=== PATIENT | female | born 1995 | race Caucasian/White ===

== ENCOUNTER 2024-07-11 15:00 | Outpatient (CLI) | payer BC, SELFPAY ==
--- NOTE | 2024-07-11 15:00 | CRLHL7_ITS ---
For Patients: As a result of the 21st Century Cures Act, medical imaging exams and procedure reports are released immediately into your electronic medical record. You may view this report before your referring provider. If you have questions, please contact your health care provider. OB ULTRASOUND SURVEY LMP: 02/19/2024. ROE by LMP: 11/25/2024. GA: 20 w, 3 d. INDICATION: Supervision of normal . TECHNIQUE: Real time grayscale imaging of the fetus was performed. Evaluate anatomy. Transabdominal. position: Breech. Cervix: Visualized. Technique: Transabdominal. Length of closed cervix: 4.3 cm. Placenta/cord: Anterior. Technique: Transabdominal. Placenta tip to internal OS: 6.6 cm. Umbilical Cord: 3-vessel cord. Placenta insertion: Central. Amniotic Fluid: 5.0 cm SDP (greater than/equal to: 2- less than 8 cm). SURVEY: Observed Structures. Calvarium/Spine: Cerebellum: 2.3 cm, 22 w 4 d. Cisterna Magna: 4.1 mm. Nuchal Fold: 5.1 mm. Lateral Ventricle: 6.4 mm. CSP: Yes. Midline Falx: Yes. Choroid Plexus: Yes. Spine: Yes. Abdomen: Stomach: Yes. Abd Cord Insertion: Yes. Urinary Bladder: Yes. Kidneys: Yes. Diaphragm: Yes. Face: Nose/lips: Yes. Orbital view: Yes. Profile: Yes. Limbs: Upper Extremities: Yes. Lower Extremities: Yes. Hands: Yes. Feet: Yes. Vascular: 4-Chamber Heart: Yes. LVOT: Yes. RVOT: Yes. 3VV: Yes. 3VTV: Yes. BPD: 4.9 cm. 20 w, 6 d, 69 percent. HC: 18.8 cm. 21 w, 1 d, 73 percent. AC: 17.1 cm. 22 w, 0 d, 89 percent. FL: 3.4 cm. 20 w, 4 d, 48 percent. FL/AC ratio: 19.79 percent. HC/AC ratio: 1.10. heart rate: 147 bpm. age by this US: 21 w, 3 d. ROE by this US: 11/18/2024. EFW: 417.68 g. Weight: 0 lbs, 15 oz. Percentile by ROE: 90 percent. IMPRESSION: 1. Sonographic gestational age 21 weeks 3 days and sonographic due date 11/18/2024. Sonographic age 1 week ahead of the clinical age. 2. Estimated weight 90th percentile. Abdominal circumference 89th percentile. 3. Normal anatomic survey. Onur Cedillo M.D. Diagnostic Radiologist [email or web address]/Dictated by: Onur Cedillo MD @ 07/12/2024 9:23:00 AM (Electronically Signed)
== END 2024-07-11 15:01 | disposition home or self-care (01) ==
LOC: US 15:01
PROVIDERS: PCP Family Medicine; Visit Provider Advanced Practice Midwife
DX: Z34.92 Encounter for supervision of normal pregnancy, unspecified, second trimester (principal); Z3A.20 20 weeks gestation of pregnancy
CPT/HCPCS: 76805

== ENCOUNTER 2024-09-06 08:30 | Outpatient (CLI) | payer BC, SELFPAY | END 2024-09-06 08:31 | disposition home or self-care (01) | LOC: NFLDREF 09-08 07:54 | PROVIDERS: PCP Family Medicine; Referring Provider Family Medicine; Visit Provider Advanced Practice Midwife | DX: Z34.83 Encounter for supervision of other normal pregnancy, third trimester (principal) | CPT/HCPCS: 86592 ==

== ENCOUNTER 2024-10-18 13:57 | Outpatient (CLI) | payer BC, SELFPAY ==
--- NOTE | 2024-10-24 14:03 | ONC.NURNOTE ---
Dx: Iron Deficiency Anemia in
== END 2024-10-18 13:58 | disposition home or self-care (01) ==
PROVIDERS: PCP Family Medicine; Referring Provider Family Medicine; Visit Provider Advanced Practice Midwife
DX: Z34.93 Encounter for supervision of normal pregnancy, unspecified, third trimester (principal)
CPT/HCPCS: 82728

== ENCOUNTER 2024-11-03 09:08 | Outpatient (CLI) | payer BC, SELFPAY ==
[2024-11-04 13:41] LABS: Strep B DNA Probe Negative (Negative)
[2024-11-04 13:58] LABS: Strep B Susceptibility Needed? No
== END 2024-11-03 09:09 | disposition home or self-care (01) ==
LOC: NFLDREF 09:08
PROVIDERS: PCP Family Medicine; Visit Provider Midwife
DX: Z34.93 Encounter for supervision of normal pregnancy, unspecified, third trimester (principal)
CPT/HCPCS: 87081; 87653

== ENCOUNTER 2024-11-11 23:45 | Outpatient (CLI) | payer BC, SELFPAY ==
[2024-11-12 00:15] VITALS: BP 113/69; PULSE 83
[2024-11-12 00:16] VITALS: PULSE 87; RESP 16; TEMP 36.4; O2SAT 98
--- NOTE | 2024-11-12 03:34 | PC.OBNST ---
NST Note NST Note Start: 11/11/24 23:53 Freq: ONCE Status: Active Protocol: Document 11/12/24 01:35 [email or web address] (Rec: 11/12/24 03:33 SEEMA Najera) NST Note 3 Para (# of births) 1 EDC 11/25/24 Gestational Age In 38 Weeks & 1 Days Weeks & Days Patient Presented Contractions/cramping with Complaint(s) of Reactive Yes Appropriate for Yes Gestational Age HAI Guaman RN Date 11/12/24 Reactive Yes Appropriate for Yes Gestational Age HAI Mack RNC Date 11/12/24 OB NST charge Yes Complete NST Note Yes via Write Note Pt did not make cervical change. Discharged ambulatory with . The provider's electronic signature indicates the NST is reactive/appropriate for gestational age. *Note to provider: If an addendum is required, open the patient's chart and click on the note under the Nurse/Allied Health tab.
== END 2024-11-12 01:35 | disposition home or self-care (01) ==
LOC: OB OUT 23:45 → OB 23:46
PROVIDERS: PCP Family Medicine; Visit Provider Midwife
DX: O47.1 False labor at or after 37 completed weeks of gestation (principal); Z3A.38 38 weeks gestation of pregnancy
CPT/HCPCS: 59025; G0463

== ENCOUNTER 2024-11-19 12:35 | Inpatient (IN) | payer BC, SELFPAY ==
[2024-11-19] VITALS (46 sets, daily range): BP systolic 92–144; BP diastolic 54–79; PULSE 68–103; RESP 16; TEMP 36.6–36.7; O2SAT 86–100; BMI 29.8
--- NOTE | 2024-11-19 13:09 | W.PM.LDBA ---
Subjective History of Present Illness Date Seen: 11/19/24 Narrative: Patient is being admitted to Labor and Delivery for spontaneous labor. She is a 28 year old at 39.1 weeks gestation. Her full history and physical was dictated by Shaniqua Uribe CNM on 11/10/24. Please see this for details. She started jon overnight but they became more regular and painful this morning. she had some bloody show and that is what prompted her to be evaluated. Her initial SVE was 2.5cm/70% but on recheck was found to be 4cm/80%/-2. Decision was made to admit. Will collect labs given her anemia in . Specific Issues/Plans ? 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 Shaniqua Uribe on 11/10/24 # Anemia at 34 weeks, hgb 10.0 Recommend oral iron supplement EOD Attempted to call but phone not working Imaging:?? 1st trimester: Single living intrauterine with sonographic gestational age 9 weeks 3 days and sonographic due date 11/21/2024 Vaccinations:?? Covid vaccination: never had, declines Flu vaccination: 12/14/2023?declines 11/14/24 Tdap: 10/18/24 ? RSV: 10/18/24? 32 week mental health: completed? Transfer OB Labs: ? Blood type:A+ , antibody screen negative. ? Hgb: 13.2 ? Platelets: 321 ? Rubella: Immune ? Varicella: Immune RPR: non-reactive ? HBsAg: non-reactive ? Hep C: negative HIV: negative Hgb electrophoresis: normal Hgb A1C:? UC: negative GC/Chlamydia: declined ? Pap (09/10/21): NILM ? Genetic screening: declined OB - Problem Based A/P Additional Plan (1) Pain during labor: Status: Acute (2) Anemia affecting : Status: Acute Plan ASSESSMENT:? at 39.1 weeks gestation? GBS negative? complicated by: anemia ? Labor type: spontaneous Blood type: A+? ?? PLAN:? 1. Desires water . Consent signed. Hep C negative.? 2. Candidate for analgesia of choice. Planning unmedicated .? 3. Anticipate ? 4. Expectant management at this time.? 5. IV not needed at this time. 6. Intermittent auscultation after reactive tracing obtained unless condition changes per policy. Delivery/Labor/Induction Plan Plan: expectant management OB Result Labs Blood Type: A (+) positive Rubella: immune RPR/VDLR: nonreactive GBS Status: negative HBsAG: negative OB Exam Physical Exam Vital signs: Temp Pulse Resp BP Pulse Ox 98.0 F 91 16 111/68 100 11/19/24 12:30 11/19/24 12:28 11/19/24 12:30 11/19/24 12:28 11/19/24 09:59 Narrative: Psychiatric:? Alert and oriented x3? HEENT:? Normocephalic, atraumatic? Neck:? Supple without adenopathy or thyromegaly? Lungs:? Clear to auscultation bilaterally? Heart:? Regular rate and rhythm, no murmur, rub or gallop? Abdomen:? Soft, nontender, and gravid? Extremities:? No edema or erythema? Detailed Labor and Delivery Exam Patient Gravid: yes Dilation (cm): 4 (per RN exam) Effacement (%): 80 Contraction Frequency: 2.5-4 Tachysystole: No Contraction intensity: Strong/Firm Fetus (Single) Station: -2 Amniotic Membrane Status: intact Heart Rate Baseline: 125 Monitor Accelerations: Present Monitor Decelerations: None Chcf Variability: Moderate (6-25)
[2024-11-19 13:56] LABS: Hematocrit* 35.2 % (33.0-51.0); Hemoglobin* 11.7 gm/dL (12.0-16.0); Immature Granulocytes Abs Auto 0.01 K/uL (0.00-0.30); Immature Granulocytes Pct Auto 0.1 %; Mean Corpuscular HGB Conc 33 gm/dL (32-36); Mean Corpuscular Hemoglobin 29 pg (26-34); Mean Corpuscular Volume 87 fL (80-100); RDW Coefficient of Variation % 15.9 % (11.5-15.5); Red Blood Count* 4.05 m/uL (4.00-5.20); White Blood Count* 9.62 K/uL (4.50-11.00)
[2024-11-19 14:04] LABS: Lymphocytes Absolute Auto 1.70 K/uL (0.90-2.90); Slide Review Reflex No
[2024-11-19] MEDS: LACTATED RINGERS 1000 ML 1,000 ML 1200 ML IV (14:25)
[2024-11-19] MEDS: ROPIVACAINE 0.2% 100 ml 100 ML 12 MG EPIDURAL (15:17)
[2024-11-19] MEDS: LIDOCAINE 2% (PF) 5 ML VIAL EPIDURAL (15:18)
--- NOTE | 2024-11-19 15:33 | P.ANBPRC_ITS ---
[facility] Medical History Miscarriage ?O03.9 - Complete or unspecified spontaneous without complication (ICD-10) Vaginal delivery ?O80 - Encounter for full-term uncomplicated delivery (ICD-10) Surgical History H/O oral surgery ?Z98.890 - Other specified postprocedural states (ICD-10) Family History Mother High cholesterol High blood pressure Cervical cancer Depression Anxiety Father Ulcerative colitis Psoriatic arthritis Brother Psoriasis Sister Sickle cell anemia Maternal Grandmother Breast cancer Paternal Grandmother Breast cancer Social History (Updated 05/18/24 @ 08:04 by Kirby Uribe CNM) Narrative: SOCIAL? ? Education: some college? Work: health care legal assistant? ? Partner: Alexander, works for [employer]? ? Lives with: Apurva age 2? ? Pets: one dog? ? Abuse: Denies past Safe at home with current partner ? ? ? Special Diet: Denies? ? Ok with a blood transfusion: yes? ? Culture or amish beliefs: denies? RISK FACTORS? ? Exercise Times/wk: walking at work? ? Depression/Anxiety: yes prior to in high school, did ok with ? ? Previous Treatments none ? Therapy in high school JENNIFER: 0 PHQ 9: 1? ? Seat Belt Use: Routinely ? Smoking: Denies past/present? ? Alcohol/day: Denies while ? ? Caffeine: minimal use during ? ? Drug Use: Denies past/present? What is your current living situation?: I presently have a place to live Problems where you live: no known problems In the past 12 months, utilities in danger of being shut off: no In past 12 months, lack of transportation kept you from medical appts, meetings, work, or getting things needed for daily living: no In the past 12 mos, have been you worried that your food would run out before you had money to buy more?: never true In the past 12 mos, the food you bought just didn't last and you didn't have money to buy more?: never true Smoking Status: Never smoker How often does anyone, including family, friends and others, physically hurt you : never How often does anyone, including family, friends and others, insult or talk down to you: never How often does anyone, including family, friends and others, threaten you with harm: never How often does anyone, including family, friends and others, scream or curse at you: never Meds Home Medications and Allergies Home Medications ?Medication ?Instructions ?Recorded ?Confirmed ?Type acetaminophen 500 mg oral powder 500 mg PO Q6H PRN 04/1111/19/24 History packet (Tylenol Extra Strength) cetirizine 10 mg tablet (Zyrtec) 10 mg PO QDAY PRN 04/1111/19/24 History vits 75-iron 28 mg-folic 1 pkg PO DAILY 05/1711/19/24 History acid 800 mcg-omega3 440 mg oral pack (One Daily ) Iron (ferrous sulfate) See Rx Instructions .Route . Q48 11/12/24 11/19/24 History Allergies Allergy/AdvReac Type Severity Reaction Status Date / Time amoxicillin (From Augmentin) Allergy Mild Gastrointestinal Verified 11/14/24 11:50 Upset clavulanic acid (From Allergy Mild Gastrointestinal Verified 11/14/24 11:50 Augmentin) Upset Results Labs Labs: Laboratory Results - last 24 hr 11/19/24 13:35 WBC 9.62 RBC 4.05 Hgb 11.7 L Hct 35.2 MCV 87 MCH 29 MCHC 33 RDW Coeff of Rosalee 15.9 H Plt Count 252 Neut % (Auto) 76.0 H Lymph % (Auto) 17.8 L Morrison % (Auto) 5.5 Eos % (Auto) 0.5 Baso % (Auto) 0.1 Neut # (Auto) 7.30 H Lymph # (Auto) 1.70 Morrison # (Auto) 0.50 Eos # (Auto) 0.05 Baso # (Auto) 0.01 Abs Immat Gran (auto) 0.01 Imm/Tot Granulo (auto) 0.1 Blood Type A Positive Antibody Screen NEGATIVE Vital Signs Vital Signs: Last Vital Signs Temp 98.0 F 11/19/24 12:30 Pulse 88 11/19/24 15:30 Resp 16 11/19/24 12:30 BP 97/56 L 11/19/24 15:30 Pulse Ox 99 11/19/24 15:20 Weight: 78.925 kg Height: 162.56 cm Anesthesia Procedures Epidural Insertion Patient Location: OB Start Time: 14:45 Stop Time: 15:30 Start Date: 11/19/24 Stop Date: 11/19/24 Reason for Block: procedure for pain Patient Position: sitting Performed By: Ramandeep Robison Preanesthetic Checklist: IV checked, site marked, risks and benefits discussed, monitors and equipment checked, pre-op evaluation, timeout performed and anesthesia consent Prep: chlorhexidine gluconate Monitoring: blood pressure monitoring, continuous pulse oximetry and heart rate Approach: midline Vertebral Space: lumbar (1-5) Epidural Technique: ZACH saline Needle Type: Tuohy needle Injection Technique: continuous catheter Needle gauge: 17 Needle Length (cm): 10 cm Needle Insertion Depth (cm): 6 Catheter Gauge: 19 Catheter Type: multi-orifice Catheter at skin depth (cm): 16 Test Dose Result: negative and lidocaine 1.5% with epinephrine 1 to 200,000
[2024-11-19] MEDS: PHENYLEPHRINE 100 MCG/ML SYRINGE IVP (15:37)
--- NOTE | 2024-11-19 17:35 | W.PM.OBVAGDE ---
OB Procedure Vag Delivery Mother Details Mother Details: The patient is a 28 year-old, 3, Para 1, admitted on 11/19/24 at Days gestation. : 3 Para: 2 Weeks Gestation: 39.1 Admission Date: 11/19/24 Additional Details Amniotic Membrane Status: SROM Amniotic Membrane Rupture Date: 11/19/24 Amniotic Membrane Rupture Time: 16:42 Amniotic Membrane Fluid Description: Clear Analgesia/Anesthesia Type: Epidural Waterbirth: No Pitcoin: Yes (AMTSL) Labor Onset: 08:00 Complete: 17:00 Pushin:04 Heart: heart tones during second stage were category 1. Second stage was only 5 minutes long no decelerations were noted during this time. Before the 2nd stage she was checked by the RN and found to be 9.5cm and had a prolonged deceleration at 1612 lasting for 6 minutes down to 70's with some increases to the 100's during this. Tracing was intermittent and difficult to trace. Resolved with position changes and fluid bolus. Return to baseline was noted with hands and knees position. Variability was minimal after that but returned to moderate after a while. Delivery Details Delivery Date: 11/19/24 Delivery Time: 17:09 Route of delivery: Gender: Female Viability: Alive; Heart Rate Present Position at Delivery: OA Delivery Details: Sheyla was admitted for spontaneous labor and progressed normally. SROM noted at 1642 with clear fluid. Patient was complete at 1700 and pushing at 1704. of a viable female at 1709 in left tilt. Vertex delivered EDWIN and restituted to ROSHNI after delivery of the head. No nuchal cord or shoulder. Body delivered easily and without incident. Infant passed to mothers abdomen with a vigorous cry. Cord was clamped and cut at > 5 minutes. APGARS were 8 at one minute and 9 at five minutes respectively. Mouth was bulb suctioned. Intact placenta with a 3 vessel cord delivered spontaneously at 1715. Fundus firm. Intact perineal tissue with a through inspection. QBL 50 cc. Mother and baby stable; mother plans to breastfeed. weight pending. 1 Minute Interval Total Score: 8 5 Minute Interval Total Score: 9 Additional Details Shoulder Dystocia: No Placenta Delivery Time: 17:15 Placental Delivery Description: Spontaneous Procedure Done: Global Blood Loss: 50 Laceration: None Episiotomy Description: None Blood Loss Measurement Type: QBL Bakri Used: No Sponge/Need Count Correct: Yes Cord Vessel Description: 3 Vessels Event Summary Status: Mother and were stable after delivery. Disposition: floor
[2024-11-19] MEDS: IBUPROFEN 600 MG TABLET PO (21:15)
[2024-11-20 03:26] VITALS: BP 108/73; PULSE 59; RESP 20; O2SAT 98
[2024-11-20 06:36] LABS: Hemoglobin* 11.1 gm/dL (12.0-16.0)
--- NOTE | 2024-11-20 07:58 | P.DS_ITS ---
DS: Providers Provider Date Seen: 11/20/24 Date of admission: 11/19/24 12:35 Primary care physician: Quyhn Romero MD Admitting Clinician: Sarina Mena CNM Attending Physician on discharge: Kenton MENDOZA CNM Date of Discharge: 11/20/24 DS: Diagnosis Discharge Diagnosis (1) (normal spontaneous vaginal delivery): Status: Acute (2) care and examination of lactating mother: Status: Acute Exam Narrative: Exam Narrative: GENERAL APPEARANCE:? normal affect, alert, no distress MOOD:? appropriate CHEST:? clear to auscultation HEART:? regular rate and rhythm ABDOMEN:? soft, non-tender the uterine fundus is 2 finger breadths below Umbi licus, Midline and is appropriate for the stage of recovery. PERINEUM:? deferred Epidural site: No bruising or swelling noted. EXTREMITIES:? normal and no edema Const: Vital Signs, click to edit/add: Vital Signs - 24 hr 11/19/24 09:49 11/19/24 09:54 11/19/24 09:59 Temperature Pulse Rate Pulse Rate [Pulse Oximeter] Respiratory Rate Blood Pressure Blood Pressure [Le ft Arm] Pulse Oximetry 99 100 100 Oxygen Delivery Me thod 11/19/24 10:00 11/19/24 10:01 11/19/24 10:03 Temperature 97.8 F Pulse Rate 74 Pulse Rate [Pulse Oximeter] Respiratory Rate 16 16 Blood Pressure 104/75 Blood Pressure [Le ft Arm] Pulse Oximetry Oxygen Delivery Me thod 11/19/24 12:28 11/19/24 12:30 11/19/24 14:19 Temperature 98.0 F Pulse Rate 91 96 Pulse Rate [Pulse Oximeter] Respiratory Rate 16 Blood Pressure 111/68 108/62 Blood Pressure [Le ft Arm] Pulse Oximetry Oxygen Delivery Me thod 11/19/24 14:55 11/19/24 15:00 11/19/24 15:05 Temperature Pulse Rate Pulse Rate [Pulse Oximeter] Respiratory Rate Blood Pressure Blood Pressure [Le ft Arm] Pulse Oximetry 100 100 100 Oxygen Delivery Me thod 11/19/24 15:08 11/19/24 15:10 11/19/24 15:15 Temperature Pulse Rate 87 Pulse Rate [Pulse Oximeter] Respiratory Rate Blood Pressure 111/64 Blood Pressure [Le ft Arm] Pulse Oximetry 90 99 100 Oxygen Delivery Me thod 11/19/24 15:17 11/19/24 15:19 11/19/24 15:20 Temperature Pulse Rate 79 86 Pulse Rate [Pulse Oximeter] Respiratory Rate Blood Pressure 111/63 104/59 L Blood Pressure [Le ft Arm] Pulse Oximetry 86 L 99 Oxygen Delivery Me thod 11/19/24 15:21 11/19/24 15:23 11/19/24 15:30 Temperature Pulse Rate 84 90 88 Pulse Rate [Pulse Oximeter] Respiratory Rate Blood Pressure 103/58 L 100/58 L 97/56 L Blood Pressure [Le ft Arm] Pulse Oximetry Oxygen Delivery Mo thod 11/19/24 15:34 11/19/24 15:39 11/19/24 15:44 Temperature Pulse Rate 88 89 89 Pulse Rate [Pulse Oximeter] Respiratory Rate Blood Pressure 98/56 L 97/55 L 97/57 L Blood Pressure [Le ft Arm] Pulse Oximetry Oxygen Delivery Mo thod 11/19/24 15:49 11/19/24 15:54 11/19/24 15:59 Temperature Pulse Rate 95 68 82 Pulse Rate [Pulse Oximeter] Respiratory Rate Blood Pressure 92/55 L 101/56 L 95/55 L Blood Pressure [Le ft Arm] Pulse Oximetry Oxygen Delivery Mo thod 11/19/24 16:05 11/19/24 16:10 11/19/24 16:18 Temperature Pulse Rate 93 72 92 Pulse Rate [Pulse Oximeter] Respiratory Rate Blood Pressure 114/64 99/57 L 116/60 Blood Pressure [Le ft Arm] Pulse Oximetry Oxygen Delivery Mo thod 11/19/24 16:24 11/19/24 16:31 11/19/24 16:35 Temperature Pulse Rate 81 95 97 Pulse Rate [Pulse Oximeter] Respiratory Rate Blood Pressure 121/65 105/72 101/54 L Blood Pressure [Le ft Arm] Pulse Oximetry Oxygen Delivery Mo thod 11/19/24 16:45 11/19/24 16:51 11/19/24 17:08 Temperature Pulse Rate 92 87 97 Pulse Rate [Pulse Oximeter] Respiratory Rate Blood Pressure 106/56 L 110/61 144/70 H Blood Pressure [Le ft Arm] Pulse Oximetry Oxygen Delivery Mo thod 11/19/24 17:18 11/19/24 17:34 11/19/24 17:49 Temperature Pulse Rate 93 90 81 Pulse Rate [Pulse Oximeter] Respiratory Rate Blood Pressure 116/79 102/57 L 110/66 Blood Pressure [Le ft Arm] Pulse Oximetry Oxygen Delivery Me thod 11/19/24 18:04 11/19/24 18:19 11/19/24 18:34 Temperature Pulse Rate 84 78 75 Pulse Rate [Pulse Oximeter] Respiratory Rate Blood Pressure 107/62 105/67 98/55 L Blood Pressure [Le ft Arm] Pulse Oximetry Oxygen Delivery Me thod 11/19/24 18:49 11/19/24 19:04 11/19/24 19:19 Temperature Pulse Rate 75 80 82 Pulse Rate [Pulse Oximeter] Respiratory Rate Blood Pressure 102/59 L 103/61 98/57 L Blood Pressure [Le ft Arm] Pulse Oximetry Oxygen Delivery Mo thod 11/19/24 23:49 11/20/24 03:26 Temperature 98.1 F Pulse Rate Pulse Rate [Pulse Oximeter] 84 59 L Respiratory Rate 16 20 Blood Pressure Blood Pressure [Le ft Arm] 108/79 108/73 Pulse Oximetry 96 98 Oxygen Delivery Mo thod Room Air Room Air OB - DS: Summary Hospital Course Hospital Course: Sheyla is a 29 y.o. G 3 P 2011 who was admitted to [facility] for actove labor.? She had a NVD that was uncomplicated. The patient feels well.? The pain is well controlled with current medications.? She has no new complaints.? She is breast feeding and reports things are going well, but baby is off and on a lot. the patient has done well.? Vitals have been stable.?BPs have remained normo or hypotensive. She has remained afebrile.? Has a good appetite, is tolerating a general diet.? She is voiding without difficulty.? She is passing gas and has not had a bowel movement.? She is ambulating and denies any dizziness.? Has small amount of rubra lochia. She is planning condoms for prevention.?Does mention she has some discomfort at the epidural site, like it is bruised. ?? Problems: none? ?? plan:? Discharge home with baby this evening if all 24 hour tests with baby are normal.? Follow up in 2 weeks and 6 weeks.? , may see if needed? Hgb 11.1. ?? Call for signs/symptoms of preeclampsia? Peripartum Data Infant delivery method: Vaginal Laceration description: None Episiotomy description: None complications: none [place] Gender: Female Discharge Plan: Home Status at Discharge Functional status at discharge: independent ambulation Overall status at discharge: patient is progressing back to baseline Time Spent with Patient Time attestation: Total time spent providing and/or coordinating discharge services: Time spent: Less than 30 minutes Discharge Plan Discharge Disposition: Home, Self-Care Date of Admission: 11/19/24 12:35 Attending Provider on Discharge: Bhumi Anders Primary Care Provider: Quynh Friend Condition: Stable Anticipated Discharge Date/Time: 11/20/24 20:03 Discharge Medications: Continued One Daily 28-800-440 mg-mcg-mg combo pack 1 pkg PO DAILY Tylenol Extra Strength 500 mg powder in packet 500 mg PO Q6H PRN Discontinued cetirizine [Zyrtec] 10 mg tablet 10 mg PO QDAY PRN Iron (ferrous sulfate) 45 mg tablet See Rx Instructions .ROUTE .Q48 Rx Instructions: Q48; Discharge Orders: Discharge Order (Routine); Ordered 11/20/24 Ordered By: Bhumi Anders Patient Education: OB Over the Counter Medication Information, OB Vaginal/Breast Feeding Additional Instructions: Discharge instructions were reviewed with the patient including signs and symptoms of infection and home going medications Nothing vaginally for 6 weeks: no tampons or intercourse Do not drive while taking narcotic pain medication(s) Off Work or School for 6 weeks Symptoms to report to doctor: * Bleeding that saturates more than one pad per hour * Passing clots larger than the size of a golf ball * Pain not relieved by prescribed medication * Fever above 100.4 degrees Fahrenheit * A foul vaginal odor * Difficulty in emotions, mood, and functions * Thoughts of hurting yourself and/or * Painful, reddened area in your breast * Any drainage, redness, or tenderness in your IV/epidural site * Severe headache that doesn't improve after taking medications * Changes in vision, including temporary loss of vision, blurred vision, and/or light sensitivity * Upper abdominal pain (usually under ribs on the right side) * Decrease in urination or painful, frequent urinating * Chest pain * Shortness of breath * Tenderness or pain with redness and/swelling in the calf(s) of your leg 2-week visit: discuss feeding concerns, review control options and screen for anxiety/depression. 6-week visit for an annual exam. consultation services are available to all mothers and babies for the first year after delivery.? To make an appointment, please call [phone]. Activity Level: Activity as Tolerated and No strenuous activity Discharge Diet: Regular Follow Up Appointments: [facility] [Provider Group] Forms: Patient Belongings, MyHealth Info Instructions
[2024-11-20 08:16] VITALS: BP 106/73; PULSE 75; RESP 16; O2SAT 98
--- NOTE | 2024-11-20 09:45 | PM.ANPOST ---
Post Anesthesia Note Post Anesthesia Note Patient seen: Inpatient Respiratory Status: adequate Cardiovascular Status: adequate Mental Status: baseline Pain: adequate Temp: baseline Anesthetic awareness: N/A Complications: none Follow care: none
[2024-11-20 13:23] VITALS: BP 113/76; RESP 16; O2SAT 97
[2024-11-20] MEDS: ACETAMINOPHEN 500 MG TABLET 1000 MG PO (13:30)
== END 2024-11-20 18:15 | disposition home or self-care (01) | DRG 560 ==
LOC: OB 12:44
PROVIDERS: Admitting Provider Advanced Practice Midwife; PCP Family Medicine; Visit Provider Advanced Practice Midwife
DX: O99.02 Anemia complicating childbirth (principal); D64.9 Anemia, unspecified; O76 Abnormality in fetal heart rate and rhythm complicating labor and delivery; Z3A.39 39 weeks gestation of pregnancy; Z37.0 Single live birth
CPT/HCPCS: 01967; 36415; 81003; 85018; 85025; 86592; 86850; 86900; 86901; A9270; J2795; J7120

== ENCOUNTER 2025-01-08 16:15 | Outpatient (CLI) | payer BC, SELFPAY ==
[2025-01-10 14:59] LABS: HPV Source Cervical
[2025-01-17 12:27] LABS: Pap Test Digital Imaging Done; Pap Test Reviewed by Pathologi Done
== END 2025-01-08 16:16 | disposition home or self-care (01) ==
PROVIDERS: PCP Family Medicine; Visit Provider Advanced Practice Midwife
DX: Z12.4 Encounter for screening for malignant neoplasm of cervix (principal)
CPT/HCPCS: 87624; 87625; 88141; 88142; 88175